=== PATIENT | female | born 1960 | race Caucasian/White ===

== ENCOUNTER 2024-10-17 11:07 | Emergency (ER) | payer OTHER, SELFPAY ==
[2024-10-17 11:11] VITALS: BP 135/96
[2024-10-17 11:30] LABS: % Basophils 0.2 % (0-2); % Eosinophils 1.3 % (0-6); % Immature Granulocytes 0.2 % (0-0.5); % Lymphocytes 10.9 % (20.5-51.1); % Monocytes 6.1 % (1.7-9.3); % Neutrophils 81.3 % (42.2-75.2); Absolute Eosinophils 0.1 10^3/uL (0-0.7); Absolute Lymphocytes 1.1 10^3/uL (1.2-3.4); Absolute Monocytes 0.6 10^3/uL (0.1-0.6); Absolute Neutrophils 8.4 10^3/uL (1.4-6.5); Hematocrit 45.9 % (37.0-47.0); Hemoglobin 15.4 g/dL (12.0-16.0); Mean Corp Hgb Conc. 33.6 g/dL (33.0-37.0); Mean Corpuscular Hgb 28.4 pg (27.0-31.0); Mean Corpuscular Volume 84.5 fL (81.0-99.0); Mean Platelet Volume 10.1 fL (7.4-10.4); Nucleated Red Blood Cells % 0 %; Platelet Count 366 10^3/uL (130-400); Red Blood Cell Count 5.43 10^6/uL (4.20-5.40); Red Cell Dist. Width 12.7 % (11.5-14.5); White Blood Cell Count 10.3 10^3/uL (4.8-10.8)
[2024-10-17 12:00] LABS: ALT (SGPT) 14 U/L (0-35); AST (SGOT) 19 U/L (14-36); Albumin 5.3 g/dl (3.5-5.0); Alkaline Phosphatase 72 U/L (38-126); Blood Urea Nitrogen 22 mg/dl (7-17); Calcium 10.8 mg/dl (8.4-10.2); Carbon Dioxide 22 mmol/L (22-30); Chloride 109 mmol/L (98-107); Glucose 108 mg/dl (70-99); Lipase 77 U/L (23-300); Potassium 4.8 mmol/L (3.5-5.1); Sodium 143 mmol/L (135-145); Total Bilirubin 0.6 mg/dl (0.2-1.3); Total Protein 8.3 g/dl (6.3-8.2); eGFR 56.81
--- NOTE | 2024-10-17 13:33 | ED.GENMED ---
History of Present Illness
General
Chief Complaint: Abdominal Symptoms
Source: patient
Exam Limitations: none
Time Seen by Provider: 10/17/24 13:18
History of Present Illness
History of Present Illness:
64-year-old female presents with persistent diarrhea nausea vomiting. 5 days ago she took her seventh dose of semaglutide. She then developed diarrhea following this with vomiting. She denies abdominal pain. No fevers. She notes ongoing reflux.
No blood in the vomit or the stool. She is healthy otherwise. No other pains at this time
Past History
Past History
ED Past Medical History: None
ED Past Surgical History: None
Phy Exam
Physical Exam
Physical Exam:
General: Well-appearing female no acute respiratory distress
HEENT normocephalic atraumatic
Heart: Regular rate and rhythm
Lungs: Clear no wheeze
Abdomen is soft nontender nondistended
Extremities: No cyanosis
Course
Orders/Labs/Results
Orders:
Orders
10/17/24 11:24
Complete Blood Count/With Diff Urgent
Comprehensive Metabolic Panel Urgent
Lipase Urgent
10/17/24 13:28
0.9% Sodium Chloride 1000 ml [Nss] 1,000 ml IV BOLUS
10/17/24 13:38
Famotidine [Pepcid] 20 mg IV NOW STA
10/17/24 14:43
0.9% Sodium Chloride 1000 ml [Nss] 1,000 ml IV BOLUS
Mag Hydrox/Al Hydrox/Simeth [Maalox] 30 ml Phenobarb/Hyoscy/Atropine/Scop [] 10 ml Viscous Lidocaine 2% [Xylocaine Viscous Cup] 10 ml PO NOW
10/17/24 14:47
Mag Hydrox/Al Hydrox/Simeth [Maalox] 30 ml .ROUTE .STK-MED ONE
Phenobarb/Hyoscy/Atropine/Scop [] 10 ml .ROUTE .STK-MED ONE
Viscous Lidocaine 2% [Xylocaine Viscous Cup] 15 ml .ROUTE .STK-MED ONE
Abnormal Lab Results
10/17/24
11:24
RBC 5.43 H 10^6/uL
(4.20-5.40)
Absolute Neuts (auto) 8.4 H 10^3/uL
(1.4-6.5)
Absolute Lymphs (auto) 1.1 L 10^3/uL
(1.2-3.4)
Neutrophils % 81.3 H %
(42.2-75.2)
Lymphocytes % 10.9 L %
(20.5-51.1)
Chloride 109 H mmol/L
(98-107)
BUN 22 H mg/dl
(7-17)
Creatinine 1.1 H mg/dL
(0.6-1.0)
Glucose 108 H mg/dl
(70-99)
Calcium 10.8 H mg/dl
(8.4-10.2)
Total Protein 8.3 H g/dl
(6.3-8.2)
Albumin 5.3 H g/dl
(3.5-5.0)
10/17/24 11:24
10/17/24 11:24
Vital Signs
Initial and Last Documented VS:
Initial Vital Signs
Temp Pulse Resp BP Pulse Ox
983 F H 104 16 135/96 98
10/17/24 11:11 10/17/24 11:11 10/17/24 11:11 10/17/24 11:11 10/17/24 11:11
Last Documented Vital Signs
Temp Pulse Resp BP Pulse Ox
983 F H 104 16 119/83 98
10/17/24 11:11 10/17/24 11:11 10/17/24 11:11 10/17/24 16:00 10/17/24 16:15
MDM/Problems Addressed
Differential Diagnosis Includes:
Vomiting with diarrhea relatively benign abdominal exam. Consider medication adverse effect versus electrolyte abnormality
Considered imaging studies however not indicated given benign exam. Fluids ordered. Labs reviewed creatinine 1.1 likely prerenal
*Critical Care Note
Total Time (30-74mins, 75-104mins- exclusive of procedures): Not Applicable
Update Note
Update Note:
Patient reevaluated still stable. No indication for admission.
ED Attending Note
-
Portions of this chart may have been created with voice recognition software.� Occasional wrong word or��sound alike� substitutions may have occurred due to the inherent limitations of voice recognition software.
Discharge Plan
Departure
Patient Disposition: Home (Routine Discharge)
Patient with high blood pressure during this ER visit?: No
Discharge Problem:
Nausea vomiting and diarrhea
Instructions: Nausea and Vomiting, Adult (DC)
Prescriptions:
New
ondansetron 4 mg tablet,disintegrating
4 mg PO Q8H PRN (Reason: nausea and vomiting) Qty: 10 0RF
No Action
methylprednisolone 4 MG tablet
4 mg PO TAPER
ibuprofen 200 MG tablet
600 mg PO PRN PRN (Reason: as directed)
epinephrine [EpiPen] 0.3 MG/0.3/SYRINGE auto-injector
0.3 mg IM PRN PRN (Reason: as directed)
Vitamin B-6:
1 tab PO DAILY
Zinc
1 tab PO DAILY
epinephrine [EpiPen] 0.3 MG/0.3/SYRINGE auto-injector
0.3 mg IM PRN PRN (Reason: reaction) Qty: 1 0RF
Referrals:
Rosa Armendariz CRNP [Family Provider, Family Practice]
Activity Restrictions/Additional Instructions:
Drink plenty of clear liquids. Eat a bland diet. Use Zofran if needed for nausea. Return if worse otherwise follow-up with your doctor
Interventions
Interventions:
*Risk Screen - Suicide Last Done: 10/17/24 11:11
*General Assessment Last Done: 10/17/24 13:44
*Neglect/Abuse Screening Last Done: 10/17/24 11:11
*ED- Fall Risk Assessment Last Done: 10/17/24 13:44
*ED COVID-19 Vaccine History Last Done: 10/17/24 13:44
*Nursing Disposition Last Done: 10/17/24 16:34
RN-Wasqnn-Bopqzdmngw Assessment Last Done: 10/17/24 13:44
Discharge Date and Time
Discharge Date/Time: 10/17/24 16:34
Print Language: SPANISH
[2024-10-17] MEDS: PEPCID 20 MG IV (13:47)
[2024-10-17] MEDS: NSS 1000 IV ×2 (13:48→14:48)
[2024-10-17 13:53] VITALS: BP 119/85
[2024-10-17] MEDS: MAALOX 50 PO (14:48)
[2024-10-17 15:00] VITALS: BP 123/84
[2024-10-17 16:00] VITALS: BP 119/83
== END 2024-10-17 16:34 | disposition home or self-care (01) ==
LOC: EMR 11:07
PROVIDERS: EMERGENCY PHYSICIAN Emergency Medicine; FAMILY PHYSICIAN Nurse Practitioner Family
DX: R19.7 Diarrhea, unspecified (principal); R11.2 Nausea with vomiting, unspecified; K21.9 Gastro-esophageal reflux disease without esophagitis; Z91.030 Bee allergy status; Z91.048 Other nonmedicinal substance allergy status
CPT/HCPCS: 99284; 96374; 96361 ×2; 80053; 83690; 85025

== ENCOUNTER 2025-03-25 06:28 | Day surgery (SDC) | payer OTHER, SELFPAY | END 2025-03-25 13:17 | disposition home or self-care (01) | LOC: GI 06:28 | PROVIDERS: ATTENDING PHYSICIAN Internal Medicine Gastroenterology | DX: Z12.11 Encounter for screening for malignant neoplasm of colon (principal); K64.9 Unspecified hemorrhoids; K57.30 Diverticulosis of large intestine without perforation or abscess without bleeding; Z86.0100 Personal history of colon polyps, unspecified | CPT/HCPCS: G0105 ==

== ENCOUNTER → 2025-04-29 15:06 | Outpatient (REF) | payer OTHER, SELFPAY | LOC: RCS 15:06 | PROVIDERS: ATTENDING PHYSICIAN Nurse Practitioner Family | DX: R06.02 Shortness of breath (principal) | CPT/HCPCS: 71046; 93017 ==